=== PATIENT | female | born 1955 | race African-American/Black ===

== ENCOUNTER 2017-02-01 14:34 | Emergency (ER) | payer OTHER ==
[2017-02-01] MEDS ORDERED: DEXTROSE 50%-WATER 25 GM/50 ML DISP.SYRIN IV ONE (14:46)
[2017-02-01] MEDS ORDERED: DEXTROSE 5%-NORMAL SALINE 1,000 ML IV ONE (14:46)
--- NOTE | 2017-02-01 14:48 | ER Document Report ---
ED Medical Screen (RME) - General Stated Complaint: NON RESPONSIVE Time Seen by Provider: 02/01/17 14:45 Notes: Patient apparently was just at the cardiology office. Significant other states that she was acting confused so she was brought here to the emergency department. [facility] She was immediately brought back to room [facility]. She was given oral glucose as well as orange juice with a syringe. In the meantime an IV was started and D50 was pushed. Patient is now alert but confused. D5 has been ordered. TRAVEL OUTSIDE OF THE [place] IN LAST 30 DAYS: No Past Medical History - Past Medical History Cardiac Medical History: Reports: Hx Hypertension Endocrine Medical History: Reports: Hx Diabetes Mellitus Type 2 Psychiatric Medical History: Reports: Hx Anxiety - Immunizations Hx Diphtheria, Pertussis, Tetanus Vaccination: Yes
--- NOTE | 2017-02-01 14:58 | ER Document Report ---
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 Her drove her to the ER and her sugar on arrival was 20. She was given an amp of D50, crackers and orange juice prior to my evaluation. The patient says she took her Lantus and Humalog this morning and only ate soup for breakfast. She did not have lunch. On my evaluation, patient is slightly confused and slow to respond, but is awake and interactive. Patient denies focal weakness, numbness, tingling, blurry vision, chest pain, shortness of breath, difficulty swallowing, headache, fevers, neck stiffness or urinary symptoms. TRAVEL OUTSIDE OF THE [place] IN LAST 30 DAYS: No Past Medical History - General Information source: Patient, Relative - Social History Smoking Status: Unknown if Ever Smoked Family History: Reviewed & Not Pertinent - Past Medical History Cardiac Medical History: Reports: Hx Hypertension Endocrine Medical History: Reports: Hx Diabetes Mellitus Type 2 Psychiatric Medical History: Reports: Hx Anxiety - Immunizations Hx Diphtheria, Pertussis, Tetanus Vaccination: Yes Review of Systems - Review of Systems Notes: REVIEW OF SYSTEMS: CONSTITUTIONAL: -fevers, -chills EENT: -eye pain, -difficulty swallowing, -nasal congestion CARDIOVASCULAR:-chest pain, -syncope. RESPIRATORY: -cough, -SOB GASTROINTESTINAL: -abdominal pain, - nausea, -vomiting, -diarrhea GENITOURINARY: -dysuria, -hematuria MUSCULOSKELETAL: -back pain, -neck pain SKIN: -rash or skin lesions. HEMATOLOGIC: -easy bruising or bleeding. LYMPHATIC: -swollen, enlarged glands. NEUROLOGICAL: +altered mental status or loss of consciousness, -headache, - neurologic symptoms PSYCHIATRIC: -anxiety, -depression. ALL OTHER SYSTEMS REVIEWED AND NEGATIVE. Physical Exam - Vital signs Vitals: Resp 16 02/01/17 15:20 - Notes Notes: PHYSICAL EXAMINATION: GENERAL: Well-appearing, well-nourished and in no acute distress. Slightly confused. HEAD: Atraumatic, normocephalic. EYES: Pupils equal round and reactive to light, extraocular movements intact, sclera anicteric, conjunctiva are normal. ENT: nares patent, oropharynx clear without exudates. Moist mucous membranes. NECK: Normal range of motion, supple without lymphadenopathy LUNGS: Breath sounds clear to auscultation bilaterally and equal. No wheezes rales or rhonchi. HEART: Regular rate and rhythm without murmurs ABDOMEN: Soft, nontender, normoactive bowel sounds. No guarding, no rebound. No masses appreciated. EXTREMITIES: Normal range of motion, no pitting or edema. No cyanosis. NEUROLOGICAL: Cranial nerves grossly intact. AAOx3. Slow to respond. Normal sensory and motor exams. PSYCH: Normal mood, normal affect. SKIN: Warm, Dry, normal turgor, no rashes or lesions noted. Course - Re-evaluation Re-evalutation: 02/01/17 16:38 Pt is back to baseline after she ate a full lunch. No evidence of renal failure. The hyperglycemia is most likely from taking insulin and not eating. She is not on a sulfonylurea. Instructed her to follow-up with her primary care physician for further evaluation and possible adjustment of her insulin dosing. Given return precautions and she understands. - Vital Signs Vital signs: Temp Pulse Resp BP Pulse Ox 66 16 184/82 H 98 02/01/17 15:51 02/01/17 15:51 02/01/17 15:51 02/01/17 15:51 - Laboratory Result Diagrams: 02/01/17 14:50 02/01/17 14:50 Laboratory results interpreted by me: 02/01/17 02/01/17 02/01/17 14:50 14:50 14:57 RBC 3.33 L Hgb 10.4 L Hct 32.1 L RDW 15.4 H Seg Neutrophils % 84.2 H Lymphocytes % 7.3 L Est GFR (Non-Af Amer) 57 L Glucose 128 H POC Glucose 125 H AST 68 H ALT 94 H Urine Protein Urine Glucose (UA) Ur Leukocyte Esterase 02/01/17 02/01/17 15:41 15:50 RBC Hgb Hct RDW Seg Neutrophils % Lymphocytes % Est GFR (Non-Af Amer) Glucose POC Glucose 260 H AST ALT Urine Protein 100 H Urine Glucose (UA) >=500 H Ur Leukocyte Esterase LARGE H Discharge - Discharge Clinical Impression: Hypoglycemia Condition: Stable Disposition: HOME, SELF-CARE Additional Instructions: Always eat a meal after you take your insulin. Follow-up with your primary care physician to discuss if you need any changes to your insulin regimen. Referrals: ESTEFANY KENNEDY [Primary Care Provider] - Follow up as needed
[2017-02-01 15:33] LABS: ABSOLUTE BASOPHILS # (AUTO) 0.1 10^3/uL (0.0-0.2); ABSOLUTE EOSINOPHILS # (AUTO) 0.1 10^3/uL (0.0-0.6); ABSOLUTE LYMPHOCYTES (AUTO) 0.6 10^3/uL (0.5-4.7); ABSOLUTE MONOCYTES (AUTO) 0.5 10^3/uL (0.1-1.4); ABSOLUTE NEUT (AUTO) 6.6 10^3/uL (1.7-8.2); BASOPHILS % (AUTO) 0.8 % (0-2); EOSINOPHILS % (AUTO) 1.1 % (0-6); HEMATOCRIT 32.1 % (36.0-47.0); HEMOGLOBIN 10.4 g/dL (12.0-15.5); HGB HCT DIFFERENCE -0.9; LYMPHOCYTES % (AUTO) 7.3 % (13-45); MEAN CORPUSCULAR HEMOGLOBIN 31.2 pg (27.0-33.4); MEAN CORPUSCULAR HGB CONC 32.4 g/dL (32.0-36.0); MEAN CORPUSCULAR VOLUME 96 fl (80-97); MONOCYTES % (AUTO) 6.6 % (3-13); RED BLOOD COUNT 3.33 10^6/uL (3.72-5.28); RED CELL DISTRIBUTION WIDTH 15.4 % (11.5-14.0); SEGMENTED NEUTROPHILS % (AUTO) 84.2 % (42-78); WHITE BLOOD COUNT 7.8 10^3/uL (4.0-10.5)
[2017-02-01 15:37] LABS: ALANINE AMINOTRANSFERASE 94 U/L (9-52); ALBUMIN 3.9 g/dL (3.5-5.0); ALKALINE PHOSPHATASE 80 U/L (38-126); ANION GAP 15 (5-19); ASPARTATE AMINO TRANSFERASE 68 U/L (14-36); BILIRUBIN,DIRECT 0.4 mg/dL (0.0-0.4); BILIRUBIN,TOTAL 0.5 mg/dL (0.2-1.3); BLOOD UREA NITROGEN 17 mg/dL (7-20); CALCIUM 9.4 mg/dL (8.4-10.2); CARBON DIOXIDE 22 mmol/L (22-30); CHLORIDE 107 mmol/L (98-107); CREATININE RESULT 0.99 mg/dL (0.52-1.25); GLUCOSE 128 mg/dL (75-110); POTASSIUM 4.5 mmol/L (3.6-5.0); SODIUM 143.8 mmol/L (137-145); TOTAL PROTEIN 7.1 g/dL (6.3-8.2)
[2017-02-01 15:52] VITALS: BP 184/82
[2017-02-01 16:23] LABS: APPEARANCE,URINE SLIGHTLY-CLOUDY; BILIRUBIN,URINE NEGATIVE (NEGATIVE); GLUCOSE, URINE >=500 mg/dL (NEGATIVE); KETONES,URINE NEGATIVE (NEGATIVE); LEUKOCYTE ESTERASE,URINE LARGE (NEGATIVE); NITRITE,URINE NEGATIVE (NEGATIVE); PROTEIN,URINE 100 mg/dL (NEGATIVE); URINE SPECIFIC GRAVITY 1.006; UROBILINOGEN,URINE NEGATIVE mg/dL (<2.0)
== END 2017-02-01 16:59 | disposition home or self-care (01) ==
LOC: ER 14:34
DX: E11.649 Type 2 diabetes mellitus with hypoglycemia without coma (principal); Z79.4 Long term (current) use of insulin; I10 Essential (primary) hypertension; R41.0 Disorientation, unspecified
CPT/HCPCS: 36415; 80053; 81001; 82962; 85025; 99285

== ENCOUNTER → 2017-02-01 | Outpatient (CLI) | payer OTHER ==
--- NOTE | 2017-02-01 19:46 | XCELERA REPORT ---
[address] [address] Transthoracic Echocardiogram Report Name: ELVIA MCKEON Age: 61 yrs Gender: Female : 1955 Patient Status: Outpatient Patient Location: Study Date: 02/01/2017 01:08 PM Height: 65 in Weight: 222 lb BSA: 2.1 m2 Reason For Study: CHF Ordering Physician: YOHANNES KENNEDY Performed By: Justin Chacon Interpretation Summary min post peric effusion. Mild AV sclerosis, 3 cusps AV. no no AR. Mild mitral valve annulus, No MS, trace MR, no LA enlargement. LV no LVH, normal LVEF 65% with LVDD by TDI. no RWMA, no LV enlargement. Mod TR with mild RA enlargement, RVSP 38mm Hg with RAP 8 mm Hg, IVC upper normal but contracts <50%. MMode/2D Measurements & Calculations RVDd: 2.6 cm LVIDd: 5.3 cm FS: 35.6 % Ao root diam: 3.1 cm IVSd: 0.98 cm LVIDs: 3.4 cm EDV(Teich): 133.0 ml LVPWd: 0.97 cm ESV(Teich): 47.0 ml Ao root area: 7.4 cm2 EF(Teich): 64.7 % Doppler Measurements & Calculations MV E max don: MV dec slope: Ao V2 max: LV V1 max P.0 cm/sec 196.5 cm/sec 5.5 mmHg MV A max don: 771.8 cm/sec2 Ao max PG: LV V1 max: 117.6 cm/sec MV dec time: 15.4 mmHg 116.9 cm/sec MV E/A: 1.2 0.18 sec PA V2 max: PI end-d don: TR max don: RAP systole: 115.0 cm/sec 142.3 cm/sec 255.7 cm/sec 5.0 mmHg PA max P.3 mmHg TR max P.5 mmHg RVSP(TR): 31.5 mmHg Left Ventricle The left ventricle is grossly normal size. There is normal left ventricular wall thickness. LV EF is 65%. The E/E' ratio between the mitral E wave and the mitral annulus E' wave is abnormal, with a value of > 10. No regional wall motion abnormalities noted. There is no thrombus. Right Ventricle The right ventricle is normal in size, thickness and function. The right ventricular systolic function is normal. Atria The right atrium is dilated. The left atrial size is normal. The interatrial septum is intact with no evidence for an atrial septal defect. Mitral Valve There is mild mitral annular calcification. There is no evidence of mitral valve prolapse. There is no mitral valve stenosis. There is a trace amount of mitral regurgitation. Aortic Valve The aortic valve is trileaflet. The aortic valve opens well. The aortic valve is sclerotic and shows some degree of functional abnormality. There is no aortic valvular vegetation. There is no aortic valve stenosis. No aortic regurgitation is present. Tricuspid Valve The tricuspid is normal in structure and function. There is no tricuspid valve prolapse. There is no tricuspid stenosis. There is a mild amount of tricuspid regurgitation. Pulmonic Valve The pulmonic valve is not well visualized. There is a mild amount of pulmonic regurgitation. Great Vessels The aortic root is normal size. There is aortic root sclerosis/calcification. Effusions Minimal pericardial effusion. I WMSI = 1.00 % Normal = 100 Segments Size X - Cannot 1 - Normal 2 - 3 - Akinetic4 - 1-2 small Interpret Hypokinetic Dyskinetic 3-5 moderate 5 - 6-14 large Aneurysmal 15-16 diffuse : YOHANNES KENNEDY > Paul Bojorquez
== END ==
LOC: SP 13:00
PROVIDERS: ATTEND Family Medicine
DX: I50.32 Chronic diastolic (congestive) heart failure (principal)
CPT/HCPCS: 93306